=== PATIENT | male | born 1965 | race Caucasian/White ===

== ENCOUNTER 2018-11-02 14:31 | Inpatient (IN) | payer BC ==
[~2018-11-02] VITALS: Ht 175.3 cm; Wt 73.0 kg
--- NOTE | 2018-11-02 14:41 | NUR ---
PT IS IN ROOM #1B. DR RUST EVALUATED THE PT. CODE STROKE WAS CALLED BY DR RUST. CODE STROKE PROTOCOL STARTED .
[2018-11-02 14:59] LABS: BASOPHILS # (AUTO) 0.1 K/uL (0.0-8.0); BASOPHILS % (AUTO) 1.6 % (0.0-2.0); EOSINOPHILS # (AUTO) 0.1 K/uL (0.0-0.7); EOSINOPHILS % (AUTO) 1.4 % (0.0-7.0); HEMATOCRIT 37.2 % (36.7-47.1); HEMOGLOBIN 12.6 g/dL (12.5-16.3); LYMPHOCYTES # (AUTO) 3.1 K/uL (20.0-40.0); MEAN CORPUSCULAR HEMOGLOBIN 28.9 uug (23.8-33.4); MEAN CORPUSCULAR HGB CONC 34 g/dL (32.5-36.3); MEAN CORPUSCULAR VOLUME 85.1 fL (73.0-96.2); MONOCYTES # (AUTO) 0.6 K/uL (2.0-10.0); NEUTROPHILS # (AUTO) 3.6 K/uL (1.8-8.9); PLATELET COUNT (AUTO) 305 K/uL (152-348); RED BLOOD CELL COUNT(AUTO) 4.38 MIL/uL (4.06-5.63); WHITE BLOOD COUNT (AUTO) 7.5 K/uL (3.6-10.2)
[2018-11-02 15:04] LABS: CARBON DIOXIDE 26 mmol/L (21-32); CHLORIDE 102 mmol/L (98-107); GLUCOSE 118 mg/dL (74-106); UREA NITROGEN, BLOOD 16 mg/dL (7-18)
[2018-11-02 15:10] LABS: ALANINE AMINOTRANSFERASE 31 U/L (16-63); ALKALINE PHOSPHATASE 102 U/L (50-136); ASPARTATE AMINOTRANSFERASE 23 U/L (15-37); BILIRUBIN,DIRECT < 0.1 mg/dL (0.0-0.2); BILIRUBIN,TOTAL 0.1 mg/dL (0.2-1.0); TOTAL PROTEIN, SERUM 7.6 g/dL (6.4-8.2)
[2018-11-02 15:13] LABS: ETHANOL < 3 MG/DL (0-0)
--- NOTE | 2018-11-02 15:30 | NUR ---
CODE STROKE CANCELED BY DR RUST.
[2018-11-02] MEDS ORDERED: NITR0.4T48 SL (15:31)
[2018-11-02] MEDS ORDERED: DOXE50CA4 PO (15:31)
[2018-11-02] MEDS ORDERED: THIA100T13 PO (15:31)
[2018-11-02] MEDS ORDERED: GABA600T12 PO (15:31)
[2018-11-02] MEDS ORDERED: METO25TA6 PO (15:31)
[2018-11-02] MEDS ORDERED: PRAZ2CAP2 PO (15:31)
[2018-11-02] MEDS ORDERED: SUMA100T16 PO (15:31)
[2018-11-02] MEDS ORDERED: DULO30CA2 PO (15:31)
[2018-11-02] MEDS ORDERED: FOLI1TAB16 PO (15:31)
[2018-11-02] MEDS ORDERED: ASPI81TA31 PO (15:31)
[2018-11-02] MEDS ORDERED: CLOP75TA15 PO (15:31)
[2018-11-02] MEDS ORDERED: PANT40TA4 PO (15:31)
[2018-11-02] MEDS ORDERED: DIVA-78 PO (15:31)
[2018-11-02] MEDS ORDERED: ATOR40TA PO (15:31)
[2018-11-02] MEDS ORDERED: MULT1CAP34 PO (15:31)
[2018-11-02 15:56] LABS: THYROID STIMULATING HORMONE 2.325 mIU/mL (0.358-3.740)
--- NOTE | 2018-11-02 16:23 | NUR ---
PT IS RESTING IN BED COMFORTABLY , NO S/S OF ACUTE DISTRESS AT THIS TIME. CONTINUE TO MONITOR THE PT.
[2018-11-02 16:51] LABS: *AMPHETAMINE, URINE NEGATIVE (NEGATIVE); *BARBITURATE, URINE NEGATIVE (NEGATIVE); *CANNABINOID, URINE NEGATIVE (NEGATIVE); *COCCAINE, URINE NEGATIVE (NEGATIVE); *OPIATE, URINE NEGATIVE (NEGATIVE); *PHENCYCLIDINE SCREEN,URINE NEGATIVE (NEGATIVE)
[2018-11-02 16:55] LABS: CHOLESTEROL 282 mg/dL (<200); HDL CHOLESTEROL 60 mg/dL (40-60); TRIGLYCERIDES 407 MG/DL (30-150)
--- NOTE | 2018-11-02 19:07 | NUR ---
REPORT WAS GIVEN TO REEL FILM INSPECTOR RN.
--- NOTE | 2018-11-02 19:09 | NUR ---
Received report from nurse, patient asleep, responsive to tactile/verbal stimuli. NAD patient pending TELE admission.
--- NOTE | 2018-11-02 20:21 | NUR ---
Pt. admitted to Telemetry, under care of Dr. Espino. Diagnosis: Altered Mental Status Belongs List completed Report given to floor nurse
[2018-11-02 20:32] VITALS: BP 114/80
[2018-11-02] MEDS ORDERED: MAGNESIUM HYDROXIDE 30 ML LIQUID UDC PO PRN (21:00)
[2018-11-02] MEDS ORDERED: Z GUARD REMEDY PASTE 57 GM TUBE TOP PRN (21:00)
[2018-11-02] MEDS ORDERED: ONDANSETRON 4 MG/2 ML VIAL IV PRN (21:00)
[2018-11-02] MEDS ORDERED: ACETAMINOPHEN 325 MG TABLET PO PRN (21:00)
--- NOTE | 2018-11-02 21:00 | NUR ---
nsg: pt received a/o x4, fully awake, c/o back pain 04/06. pt last memory of the incident was when he was at the detox group meeting. v/s stable. tele, NSR. cont to monitor.
[2018-11-02] MEDS: IV NS 1000 ML 1,000 ML IV PRN (21:42)
[2018-11-02] MEDS: HYDROCODONE/APAP 5-325MG TABLET PO PRN (21:42)
--- NOTE | 2018-11-03 | NUR ---
nsg: pt awake, no acute distress noted. tele, NSR. cont to monitor.
[2018-11-03 00:16] VITALS: BP 99/69
[2018-11-03] MEDS: HYDROCODONE/APAP 5-325MG TABLET PO PRN ×5 (03:23→21:51)
[2018-11-03 04:00] VITALS: BP 107/66
--- NOTE | 2018-11-03 05:08 | NUR ---
nsg: pt awake, no acute distress noted. tele, NSR. cont to monitor.
[2018-11-03 06:45] LABS: BASOPHILS # (AUTO) 0.1 K/uL (0.0-8.0); BASOPHILS % (AUTO) 1.2 % (0.0-2.0); EOSINOPHILS # (AUTO) 0.1 K/uL (0.0-0.7); EOSINOPHILS % (AUTO) 2.3 % (0.0-7.0); HEMATOCRIT 33.9 % (36.7-47.1); HEMOGLOBIN 11.2 g/dL (12.5-16.3); LYMPHOCYTES % (AUTO) 47.2 % (20.5-51.5); MEAN CORPUSCULAR HEMOGLOBIN 28.4 uug (23.8-33.4); MEAN CORPUSCULAR HGB CONC 33 g/dL (32.5-36.3); MEAN CORPUSCULAR VOLUME 86.3 fL (73.0-96.2); MONOCYTES # (AUTO) 0.7 K/uL (2.0-10.0); MONOCYTES % (AUTO) 10.5 % (0.0-11.0); NEUTROPHILS # (AUTO) 2.4 K/uL (1.8-8.9); NEUTROPHILS % (AUTO) 38.8 % (38.5-71.5); PLATELET COUNT (AUTO) 282 K/uL (152-348); RED BLOOD CELL COUNT(AUTO) 3.93 MIL/uL (4.06-5.63); WHITE BLOOD COUNT (AUTO) 6.3 K/uL (3.6-10.2)
[2018-11-03 07:06] LABS: BILIRUBIN,TOTAL 0.1 mg/dL (0.2-1.0); CREATININE 1.1 mg/dL (0.6-1.3); MAGNESIUM 2.1 mg/dL (1.8-2.4); PHOSPHOROUS 4.3 mg/dL (2.5-4.9); TOTAL PROTEIN, SERUM 6.3 g/dL (6.4-8.2)
--- NOTE | 2018-11-03 07:47 | NUR ---
patient resting comfortably in bed at this time. NSR on telemetry. stable condition with no signs of distress. call light within reach of patient. will continue to monitor throughout shift. safety measures implemented.
[2018-11-03 11:07] VITALS: BP 114/69
[2018-11-03] MEDS ORDERED: PRAZ1CAP5 PO (11:15)
[2018-11-03] MEDS: IV NS 1000 ML 1,000 ML IV PRN (12:46)
[2018-11-03 15:00] VITALS: BP 106/62
--- NOTE | 2018-11-03 18:08 | NUR ---
No significant changes throughout the shift. Pain management provided for patient's lower back and shoulder pain. Vital signs stable throughout shift. IVF running. Telemetry DC/ed. safety measures implemented. will continue to monitor until end of shift.
[2018-11-03] MEDS ORDERED: NITROGLYCERIN 0.4 MG/TAB BOTTLE SL SCH (19:00)
[2018-11-03] MEDS ORDERED: PRAZOSIN HCL 1 MG CAPSULE PO PRN (19:00)
--- NOTE | 2018-11-03 19:25 | NUR ---
Patient alert and oriented x 2-3. Resting in bed with daughter at bedside. Spoke with daughter, and she would like to be informed on any changes of condition with the patient. Safety measures and call light within reach of patient. Will continue to monitor. Addendum: 11/03/18 at 2140 by MIGUEL FLORES RN Wrong patient noted above. Patient alert and orient x 4. C/O pain at this time. PRN can be give at 2150, will adminster then. Safety measures in place. Call light and frequently used items within reach. Will continue to monitor
[2018-11-03] MEDS ORDERED: NITROGLYCERIN 0.4 MG/TAB BOTTLE SL PRN (19:30)
[2018-11-03 20:00] VITALS: BP 110/75
[2018-11-03] MEDS: GABAPENTIN 300 MG CAPSULE PO SCH (21:01)
[2018-11-03] MEDS: DULOXETINE 30 MG CAPSULE.DR PO SCH (21:01)
[2018-11-03] MEDS: DOXEPIN 50 MG CAPSULE PO SCH (21:01)
[2018-11-04 06:35] VITALS: BP 98/55
--- NOTE | 2018-11-04 06:46 | NUR ---
No significant changes this shift. PRN Kyle given at 0504. No C/O SOB or distress this shift. Slept most of the night. Safety measures maintained. Will endorse to oncoming shift accordingly.
--- NOTE | 2018-11-04 07:23 | NUR ---
Patient resting comfortably in bed. stable condition. no signs of distress. safety measures implemented. A/Ox4. IVF running. ambulatory. will continue to monitor throughout shift.
[2018-11-04] MEDS: ASPIRIN 81 MG TAB.CHEW PO SCH (08:06)
[2018-11-04] MEDS: FOLIC ACID 1 MG TABLET PO SCH (08:06)
[2018-11-04] MEDS: CLOPIDOGREL 75 MG TABLET PO SCH (08:06)
[2018-11-04] MEDS: THIAMINE HCL 100 MG TABLET PO SCH (08:06)
[2018-11-04] MEDS: GABAPENTIN 300 MG CAPSULE PO SCH ×3 (08:06→17:16)
[2018-11-04] MEDS: MULTIVITAMINS,THERAPEUTIC TABLET PO SCH (08:06)
[2018-11-04] MEDS: METOPROLOL TARTRATE 25 MG TABLET PO SCH ×2 (08:08→17:17)
[2018-11-04] MEDS ORDERED: MULTIVITAMINS 5 ML LIQUID UDC PO SCH (09:00)
[2018-11-04] MEDS: HYDROCODONE/APAP 5-325MG TABLET PO PRN ×4 (09:07→22:57)
[2018-11-04 11:30] VITALS: BP 109/73
[2018-11-04 15:30] VITALS: BP 104/70
--- NOTE | 2018-11-04 15:45 | NUR ---
PATIENT LEFT FOR MRI BRAIN WITH OR WITHOUT CONTRAST AT [facility]. PATIENT HAS PLATES IN RIGHT CHEEK, WRIST, HAND; SCREW IN LEFT PINKY FINGER; CARDIAC STENT. [facility] AT [facility] CONTACTED TO BE SURE PATIENT IS ELIGIBLE TO HAVE AN MRI AND SYL APPROVED. MRI CHECKLIST AND CONTRAST ADMINISTRATION COMPLETED AND SIGNED BY PATIENT.
[2018-11-04 17:12] VITALS: BP 128/84
--- NOTE | 2018-11-04 17:13 | NUR ---
PATIENT RETURNED FROM MRI AT THIS TIME IN STABLE CONDITION. NO SIGNS OF DISTRESS. VITAL SIGNS TAKEN AND STABLE.
[2018-11-04] MEDS: DIVALPROEX 500 MG TABLET.DR PO SCH (17:16)
[2018-11-04] MEDS: ATORVASTATIN 40 MG TABLET PO SCH (17:16)
[2018-11-04 19:00] VITALS: BP 105/75
--- NOTE | 2018-11-04 20:00 | NUR ---
RECEIVED PATIENT AWAKE IN BED. A/O X4. DENIES PAIN OR DISCOMFORT AT THIS TIME. NO RESP. DISTRESS NOTED. H/L INTACT AND PATENT, NOTED TO RIGHT FA #20 GAUGE. VSS. CALL LIGHT IN REACH. ALL NEEDS ATTENDED, WILL CONTINUE TO MONITOR AND ASSESS.
[2018-11-04] MEDS: DOXEPIN 50 MG CAPSULE PO SCH (21:08)
[2018-11-04] MEDS: DULOXETINE 30 MG CAPSULE.DR PO SCH (21:08)
[2018-11-05] MEDS: IV NS 1000 ML 1,000 ML IV PRN (01:37)
[2018-11-05 04:00] VITALS: BP 113/62
[2018-11-05] MEDS: HYDROCODONE/APAP 5-325MG TABLET PO PRN ×5 (04:25→20:21)
--- NOTE | 2018-11-05 06:06 | NUR ---
PATIENT AWAKE. SLEPT WELL. DENIES PAIN AT THIS TIME. VSS. CALL LIGHT IN REACH. ALL NEEDS ATTENDED. WILL CONTINUE TO MONITOR AND ASSESS.
--- NOTE | 2018-11-05 07:00 | NUR ---
RECEIVED PATIENT AWAKE IN BED. A/O X4. BACK PAIN WILL TREAT W/MEDS PER ORDERS. NO RESP. DISTRESS NOTED. CALL LIGHT IN REACH. WILL CONTINUE TO MONITOR AND ASSESS.
[2018-11-05] MEDS: DIVALPROEX 500 MG TABLET.DR PO SCH ×2 (08:35→16:44)
[2018-11-05] MEDS: ASPIRIN 81 MG TAB.CHEW PO SCH (08:35)
[2018-11-05] MEDS: THIAMINE HCL 100 MG TABLET PO SCH (08:36)
[2018-11-05] MEDS: FOLIC ACID 1 MG TABLET PO SCH (08:36)
[2018-11-05] MEDS: CLOPIDOGREL 75 MG TABLET PO SCH (08:36)
[2018-11-05] MEDS: GABAPENTIN 300 MG CAPSULE PO SCH ×3 (08:36→16:43)
[2018-11-05] MEDS: MULTIVITAMINS,THERAPEUTIC TABLET PO SCH (08:37)
[2018-11-05] MEDS: METOPROLOL TARTRATE 25 MG TABLET PO SCH ×2 (08:37→16:43)
[2018-11-05 12:00] VITALS: BP 115/73
[2018-11-05 15:51] VITALS: BP 114/74
[2018-11-05] MEDS: ATORVASTATIN 40 MG TABLET PO SCH (16:44)
[2018-11-05 16:50] VITALS: BP 122/84
[2018-11-05] MEDS ORDERED: DIVA500T2 PO (18:06)
[2018-11-05] MEDS ORDERED: INFLUENZA VACCINE 2018-2019 0.5 ML DISP.SYRIN IM ONE (18:30)
--- NOTE | 2018-11-05 19:08 | NUR ---
AWAKE IN BED. A/O X4. BACK PAIN TREATED W/NORCO AND ICE, NO RESP. DISTRESS NOTED. CALL LIGHT IN REACH. WILL CONTINUE TO MONITOR AND ASSESS. WILL BE GOING TO DETOX AT 2130
[2018-11-05 20:00] VITALS: BP 112/78
--- NOTE | 2018-11-05 20:00 | NUR ---
RECEIVED PATIENT AWAKE IN BED WAITING TO BE [employer]ERIAL COMBINER FOR DISCHARGE. PATIENT IS A/O X4. VSS. HEPLOCK REMOVED. CALL LIGHT IN REACH. ALL NEEDS ATTENDED. WILL CONTINUE TO MONITOR.
[2018-11-05] MEDS: DULOXETINE 30 MG CAPSULE.DR PO SCH (20:20)
[2018-11-05] MEDS: DOXEPIN 50 MG CAPSULE PO SCH (20:20)
--- NOTE | 2018-11-05 21:30 | NUR ---
PATIENT DISCHARGED ORDERED. LEFT FACILITY IN STABLE CONDITION. ALL NEEDS ATTENDED.
--- NOTE | 2019-01-05 10:28 | NUR ---
9:50 Called [employer] [ ] to attempt to talk to a CM from [facility] but the call was dropped. 9:55 Called once again and went through the automated machine to do prompts. Spoke to Doug and used Auth# [id number] to locate the patient. Informed him about the denial letter and the reason being they have not received any clinical reviews though it was faxed to them daily. He did confirm that the fax number was correct. When asked if a peer to peer can be done, he stated they can not do a peer to peer because they do not have any clinicals at all. He suggested to do a verbal clinical review with the [facility]. He attempted to transfer the call but was dropped. 10:11 Tried calling the Peer to Peer phone number [ ] given by Wilder Paula and spoke to Sandra. Informed her about the drop call with Doug. She found the case and attempted to transfer this janitor and cleaner to / as well but the call was dropped. 10:17 Called but was connected to a voice machine stating they are having system problems. 10:27 Faxed the patient's Facesheet, H&P, Consults, Progress Notes, Imaging and Discharge Note to and received confirmation. Addendum: 01/05/19 at 1056 by TOBY KAY CM 10:52 Spoke to [place] and he stated that Edith from /[facility] called him and gave him a different fax number. He informed the fax team about the change in number. This janitor and cleaner faxed the patient's packet to the new fax number.
== END 2018-11-05 21:30 | disposition home or self-care (01) | DRG 101 ==
LOC: ER 14:31 → TELE 20:24 → MED 11-03 08:20
PROVIDERS: ADMIT Internal Medicine; ATTEND Nurse Practitioner Acute Care
DX: R56.9 Unspecified convulsions (principal); J98.11 Atelectasis; Z79.899 Other long term (current) drug therapy; F10.11 Alcohol abuse, in remission; E78.5 Hyperlipidemia, unspecified; D63.8 Anemia in other chronic diseases classified elsewhere; I25.10 Atherosclerotic heart disease of native coronary artery without angina pectoris; Z95.5 Presence of coronary angioplasty implant and graft; I10 Essential (primary) hypertension; Z79.82 Long term (current) use of aspirin; Z79.02 Long term (current) use of antithrombotics/antiplatelets
CPT/HCPCS: 36415; 70030-TC; 70450; 70553; 71045; 80164; 80307; 83605; 83735; 84100; 84443; 85025; 85730; 87040; 90686; 93005; 93307; 95819; A4663; C1758; G0378; G0480; J7030; J8499